=== PATIENT | female | born 2000 | race Caucasian/White ===

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

== ENCOUNTER 2022-02-05 00:52 | Emergency (ER) | payer SELFPAY ==
[~2022-02-05] VITALS: Ht 160 cm; Wt 92.6 kg
[~2022-02-05 00:52] MED LIST changes: +ESCI10TA PO; +LORA10TA7 PO; +RT-ALBUINH IH
--- NOTE | 2022-02-05 01:43 | ED General ---
General Chief Complaint: COVID19 Suspect/Confirmed Stated Complaint: SOA/DIZZINESS/8 WEEKS Nursing Triage Note: Patient arrival per [facility] BLS crew reporting call for SOA. Patient has hacky cough for 3 days then burning upper chest/throat with headache that will not improve. Pt now feels some SOA with all the sysmptoms. Pt is 9 weeks gestation G-1, P-0 w/approx EDC 09/09/22. Pt has not called her PCP or OB Dr. Source of Information: Patient History of Present Illness Date Seen by Provider: Feb 05, 2022 Time Seen by Provider: 01:43 Initial Comments 21-year-old female that is G1, P0 complaining of over 3 days of increased shortness of breath, cough, burning sensation in her chest and throat. She s tates that she has had a headache and sinus pressure. She does have a history of asthma and allergies. She uses an inhaler with spacer but also has a nebulizer. She feels like the inhaler has not been helping as much lately. She was feeling more short of breath this evening so she called 911 and was brought to the emergency department. Dr. Pederson is her OB doctor and she is already seen him twice. She states that she is approximately 8 weeks along. Timing/Duration: 3-4 Days Severity: Moderate Modifying Factors: worse with Movement Associated Systoms: Chest Pain, Cough; No Diaphoresis, No Fever/Chills; Headaches; No Loss of Appetite, No Malaise, No Nausea/Vomiting, No Rash, No Seizure; Shortness of Air; No Syncope, No Weakness Allergies and Home Medications Allergies Coded Allergies: coconut (Verified Allergy, Unknown, 08/04/19) lactulose (Verified Allergy, Unknown, 08/04/19) strawberry (Verified Allergy, Unknown, 08/04/19) Patient Home Medication List Home Medication List Reviewed: Yes Albuterol Sulfate (Proair Hfa) 1 Puff Puff, 2 PUFF IH Q4H PRN for SHORTNESS OF BREATH, (Reported) Entered as Reported by: MAGAN PLUNKETT on 08/04/19 1323 Escitalopram Oxalate (Lexapro) 10 Mg Tablet, 10 MG PO DAILY, (Reported) Entered as Reported by: MAGAN PLUNKETT on 08/04/19 1323 Loratadine (Loratadine) 10 Mg Tablet, 10 MG PO DAILY PRN for ALLERGIES, (Reported) Entered as Reported by: MAGAN PLUNKETT on 08/04/19 1323 Review of Systems Review of Systems Constitutional: No chills, No diaphoresis, No fever EENTM: No ear discharge, No hearing loss, No ear pain, No eye pain, No hoarseness, No epistaxis, No nose congestion Respiratory: cough, dyspnea on exertion, short of breath; No stridor, No wheezing Cardiovascular: No chest pain, No edema Gastrointestinal: No abdominal pain Genitourinary: No decreased output Expected Date of Delivery: Sep 09, 2022 Musculoskeletal: muscle pain (Generalized body aches) Skin: no symptoms reported Psychiatric/Neurological: No Symptoms Reported Past Grynazk-[id number] Hx Patient Social History Tobacco Use?: No Substance use?: No Alcohol Use?: No Pt feels they are or have been: No Immunizations Up To Date First/Initial COVID19 Vaccinat: date ? Second COVID19 Vaccination Jamey: date ? COVID19 Vaccine [address] Engineer: Pixate Seasonal Allergies Seasonal Allergies: No Past Medical History Surgery/Hospitalization HX: Asthma, Appendectomy, Cholecystectomy Surgeries: Yes Appendectomy, Gallbladder Respiratory: Yes Asthma Cardiac: No Neurological: No Expected Date of Delivery: Sep 09, 2022 Reproductive Disorders: No Genitourinary: No Gastrointestinal: No Musculoskeletal: No Endocrine: No HEENT: No Cancer: No Psychosocial: Yes Depression Integumentary: No Blood Disorders: No Family Medical History Diabetes mellitus 19 FATHER 19 MOTHER FH: cancer 19 FATHER 19 MOTHER FH: factor V Leiden mutation 19 FATHER Diabetes, Other Conditions/Hx Physical Exam Vital Signs Vital Signs - First Documented 02/05/22 01:00 Temp 36.7 Pulse 86 Resp 20 B/P (MAP) 120/74 (89) Pulse Ox 99 O2 Delivery Room Air Capillary Refill : Less Than 3 Seconds Height, Weight, BMI Height: 5'4.00" Weight: 188lbs. oz. 85.406500gz; 36.00 BMI Method:Stated General Appearance: No Apparent Distress, WD/WN HEENT: PERRL/EOMI, TMs Normal, Normal ENT Inspection, Pharynx Normal, Moist Mucous Membranes Neck: Full Range of Motion, Normal Inspection, Non Tender, Supple Respiratory: Chest Non Tender, Lungs Clear, Normal Breath Sounds Cardiovascular: Regular Rate, Rhythm, Normal Peripheral Pulses Gastrointestinal: Normal Bowel Sounds, No Pulsatile Mass, Non Tender, Soft Rectal: Deferred Back: No CVA Tenderness Extremity: Normal Capillary Refill, Normal Inspection, No Calf Tenderness, No Pedal Edema Neurologic/Psychiatric: Alert, Oriented x3 Skin: Normal Color, Warm/Dry Progress/Results/Core Measures Suspected Sepsis SIRS Temperature: Pulse: 86 Respiratory Rate: 20 Blood Pressure 120 /74 Mean: 89 Results/Orders Lab Results Laboratory Tests Test 02/05/22 01:20 Range/Units SARS-CoV-2 RNA (RT-PCR) Not Detected Not Detecte My Orders Orders - ARIELLA MCLAUGHLIN MD Covid 19 Inhouse Test (02/05/22 01:14) Methylprednisolone Acetate Inj (Depo-Med (02/05/22 02:28) Vital Signs/I&O 02/05/22 02/05/22 01:00 01:00 Temp 36.7 Pulse 86 Resp 20 B/P (MAP) 120/74 (89) Pulse Ox 99 O2 Delivery Room Air Room Air Capillary Refill : Less Than 3 Seconds Blood Pressure Mean: 89 Progress Note : Progress Note COVID swab was sent and came back negative. Reassured patient that her symptoms may be related to allergies and asthma. Treat symptomatically and have her check back with the OB doctor if she has further issues. Departure Impression Primary Impression: Acute viral syndrome Additional Impressions: Incidental Shortness of breath Disposition: 01 HOME, SELF-CARE Condition: Stable Departure-Patient Inst. Decision time for Depature: 02:32 Referrals: AKANKSHA PEDERSON MAXWELL MD (PCP/Family) Primary Care Physician Patient Instructions: Shortness of Breath, Adult ED, Viral Syndrome (DC) Add. Discharge Instructions: Stay well-hydrated using a plenty rest. Use your inhaler with spacer for shortness of breath. If this is not working try using her nebulizer. Follow the medication list of medicines that are safe to use during . Check back with Dr. Pederson for continued concerns about the shortness of breath All discharge instructions reviewed with patient and/or family. Voiced understanding. ARIELLA MCLAUGHLIN MD Feb 05, 2022 01:43
[2022-02-05] MEDS ORDERED: methylPREDNISolone 40 MG/ML (DEPO MEDROL) VIAL IM STA (02:28)
[2022-02-05 02:40] VITALS: BP 105/76
[2022-02-05] MEDS ORDERED: Famotidine (04:18)
[2022-02-05] MEDS ORDERED: PRENATALS (04:18)
== END 2022-02-05 02:40 | disposition home or self-care (01) ==
LOC: EDUNIT# 00:52 → ER FS 00:56
DX: B34.9 Viral infection, unspecified (principal); Z20.822 Contact with and (suspected) exposure to COVID-19; Z33.1 Pregnant state, incidental
CPT/HCPCS: 87636; 99284

== ENCOUNTER 2022-02-21 14:53 | Emergency (ER) | payer SELFPAY ==
[~2022-02-21] VITALS: Ht 160 cm; Wt 92.3 kg
[~2022-02-21 14:53] MED LIST changes: +Famotidine; +PRENATALS
--- NOTE | 2022-02-21 15:26 | ED GU-Female ---
General Chief Complaint: OB < 20 WEEKS Stated Complaint: VAGINAL BLEEDING DURING PREG Nursing Triage Note: This patient arrives to the ED via private vehicle complaining that she woke up today with "blood in her underwear" but is unsure of bleeding since as she has not rechecked because she came right to the ED. She claims that she is about 10-11 weeks . Source: patient Exam Limitations: no limitations History of Present Illness Date Seen by Provider: Feb 21, 2022 Time Seen by Provider: 15:00 Initial Comments Patient is a 21-year-old, G1, P0, estimated 10 Week gestation female with ultrasound confirmed IUP who presents with painless vaginal bleeding this afternoon. Patient reports dark spotting similar to menstrual period. She denies dizziness lightheadedness, chest pain palpitation shortness of breath. No pelvic pain or cramping. Denies recent illness sexual intercourse. Patient seen earlier this week by her OB with confirmed IUP. Patient is unsure of her Rh type no other complications during this . Timing/Duration: just prior to arrival Severity/Quality: mild Location: other Radiation: other Activities at Onset: other Sexual [place] History: other Modifying Factors: Improves With Other Associated Symptoms: other Allergies and Home Medications Allergies Coded Allergies: coconut (Verified Allergy, Unknown, 08/04/19) lactulose (Verified Allergy, Unknown, 08/04/19) strawberry (Verified Allergy, Unknown, 08/04/19) Patient Home Medication List Home Medication List Reviewed: Yes Albuterol Sulfate (Proair Hfa) 1 Puff Puff, 2 PUFF IH Q4H PRN for SHORTNESS OF BREATH, (Reported) Entered as Reported by: MAGAN PLUNKETT on 08/04/19 1323 [Famotidine] , (Reported) Entered as Reported by: GRISEL TORO on 02/05/22417 [Prenatals] , (Reported) Entered as Reported by: GRISEL TORO on 02/05/22417 Review of Systems Review of Systems Constitutional: see HPI Genitourinary: see HPI Expected Date of Delivery: Sep 09, 2022 Past Zyxjqrp-Szfwyo-Alfgqd Hx Patient Social History Tobacco Use?: No Immunizations Up To Date First/Initial COVID19 Vaccinat: Received; unknown date Second COVID19 Vaccination Jamey: Received; unknown date Seasonal Allergies Seasonal Allergies: No Past Medical History Surgery/Hospitalization HX: Asthma, Appendectomy, Cholecystectomy Surgeries: Yes Appendectomy, Gallbladder Respiratory: Yes Asthma Cardiac: No Neurological: No Expected Date of Delivery: Sep 09, 2022 Reproductive Disorders: No Genitourinary: No Gastrointestinal: No Musculoskeletal: No Endocrine: No HEENT: No Cancer: No Psychosocial: Yes Depression Integumentary: No Blood Disorders: No Family Medical History Diabetes mellitus 19 FATHER 19 MOTHER FH: cancer 19 FATHER 19 MOTHER FH: factor V Leiden mutation 19 FATHER Diabetes, Other Conditions/Hx Physical Exam Vital Signs Vital Signs - First Documented 02/21/22 15:03 Pulse 79 Resp 16 B/P (MAP) 131/76 (94) Pulse Ox 98 O2 Delivery Room Air Capillary Refill : Height, Weight, BMI Height: 5'4.00" Weight: 188lbs. oz. 85.504614cl; 36.00 BMI Method:Stated General Appearance: WD/WN, no apparent distress Genital/Rectal: other (Exam deferred) Focused Exam Sepsis Stage: Ruled Out Progress/Results/Core Measures Suspected Sepsis SIRS Temperature: Pulse: 79 Respiratory Rate: 16 Blood Pressure 131 /76 Mean: 94 Results/Orders My Orders Orders - CELESTINO MICHELLE DO RH (02/21/22 15:14) Hcg,Quantitative (02/21/22 15:14) Vital Signs/I&O 02/21/22 15:03 Pulse 79 Resp 16 B/P (MAP) 131/76 (94) Pulse Ox 98 O2 Delivery Room Air Capillary Refill : Blood Pressure Mean: 94 Departure Communication (Admissions) First trimester painless vaginal bleeding with confirmed IUP. Patient's abdomen soft nontender. Will obtain hCG quant and Rh type with instructions to follow- up with OB early next week. Return precautions reviewed. Patient verbalizes understanding and agreement with discharge instructions next week. Impression Primary Impression: Vaginal bleeding affecting early Disposition: 01 HOME, SELF-CARE Condition: Stable Departure-Patient Inst. Decision time for Depature: 15:27 Referrals: SELFJANAY MD (PCP) Primary Care Physician Patient Instructions: Bleeding In Early Add. Discharge Instructions: You were evaluated in the emergency department for vaginal bleeding. The cause is not determined but may be related to miscarriage. No sexual intercourse or anything in the vagina for 1 week. Please follow-up with Dr. Pederson office on Thursday for repeat hCG quant testing and to review Rh status. In the meantime if you develop new or worsening symptoms, return to the emergency department. All discharge instructions reviewed with patient and/or family. Voiced understanding. CELESTINO MICHELLE DO Feb 21, 2022 15:26
[2022-02-21 15:35] VITALS: BP 118/82
== END 2022-02-21 15:35 | disposition home or self-care (01) ==
LOC: EDUNIT# 14:53 → ER FS 14:55
DX: O20.9 Hemorrhage in early pregnancy, unspecified (principal); Z3A.10 10 weeks gestation of pregnancy
CPT/HCPCS: 36415; 84702; 86901; 99281